=== PATIENT | female | born 1965 | race Hispanic/Latino ===

== ENCOUNTER 2017-05-21 14:10 | Emergency (ER) | payer BC, MEDICAID, OTHER ==
[2017-05-21 14:22] VITALS: BP 142/96; PULSE 85; RESP 20; TEMP 98.2; O2SAT 96
--- NOTE | 2017-05-21 15:32 | C.PDOC ---
History Of Present Illness 51 year old female presents to the ED with complaints of persistent cough for four days. Patient states when symptoms began she visited her PMD and was treated with antibiotics but symptoms persist. She notes a history of bronchitis and symptoms "feel the same way." Patient denies any fever, shortness of breath, or chest pain. Time Seen by Provider: 05/21/17 14:35 Chief Complaint (Nursing): Cough, Cold, Congestion History Per: Patient History/Exam Limitations: no limitations Onset/Duration Of Symptoms: Days (4 days ) Current Symptoms Are (Timing): Still Present Sick Contacts (Context): None Associated Symptoms: Cough. denies: Fever, Chills, Sore Throat Recent travel outside of the [place]: No Past Medical History Reviewed: Historical Data, Nursing Documentation, Vital Signs Vital Signs: Last Vital Signs Temp 98.2 F 05/21/17 14:18 Pulse 85 05/21/17 14:18 Resp 20 05/21/17 14:18 BP 142/96 H 05/21/17 14:18 Pulse Ox 96 05/21/17 18:33 - Medical History PMH: HTN, Seizures Surgical History: Cholecystectomy, Tonsillectomy - [facility] Procedures CLOSURE SKIN & SUBCUTANEOUS NEC (02/17/04) MAGNETIC RESONANCE IMAGING OF BRAIN AND BRAIN STEM (10/17/06) Family History: States: Unknown Family Hx - Social History Hx Tobacco Use: Yes (Quit smoking 3 years ago ) Hx Alcohol Use: No Hx Substance Use: No - Immunization History Hx Tetanus Toxoid Vaccination: Yes Hx Influenza Vaccination: No Hx Pneumococcal Vaccination: No Review Of Systems Constitutional: Negative for: Fever, Chills Cardiovascular: Negative for: Chest Pain, Palpitations Respiratory: Positive for: Cough. Negative for: Shortness of Breath Gastrointestinal: Negative for: Nausea, Vomiting Physical Exam - Physical Exam Appears: Non-toxic, No Acute Distress, Other (occassional dry cough noted) Skin: Warm, Dry Head: Atraumatic, Normacephalic Eye(s): bilateral: Normal Inspection, PERRL, EOMI Ear(s): Bilateral: Normal Nose: Normal Oral Mucosa: Moist Throat: Normal, No Erythema, No Exudate Neck: Normal ROM, Supple Chest: Symmetrical, No Deformity Cardiovascular: Rhythm Regular Respiratory: Normal Breath Sounds, No Rales, No Rhonchi, No Wheezing Neurological/Psych: Oriented x3, Normal Speech, Normal Cognition ED Course And Treatment O2 Sat by Pulse Oximetry: 96 (room air ) - Radiology CXR: Interpreted by Me, Viewed By Me CXR Interpretation: Yes: No Acute Disease Progress Note: On re-evaluation, pt notes her cough has improved since in the ER. Denies any pain or SOB. Pulse ox 98%. Patient was instructed to follow up with PMD and to finish course of antibiotics. Patient instructed to return to the ED if symtpoms worsen. Disposition - Disposition Disposition: HOME/ ROUTINE Disposition Time: 15:30 Condition: STABLE Additional Instructions: Follow up with primary medical doctor in 1-3 days without fail for further evaluation. Take medications as prescribed. Return to the emergency department at any time if symptoms persist or worsen. Prescriptions: Albuterol HFA [Ventolin HFA 90 mcg/actuation (8 g)] 2 puff IH [id number] PRN #1 puff PRN Reason: Shortness Of Breath Benzonatate [Tessalon Perle] 100 mg PO TID PRN #15 capsule PRN Reason: Cough Instructions: Acute Bronchitis (ED) - Clinical Impression Clinical Impression: Bronchitis - Scribe Statement The provider has reviewed the documentation as recorded by the Scribe Aleta Beckman All medical record entries made by the Scribe were at my direction and personally dictated by me. I have reviewed the chart and agree that the record accurately reflects my personal performance of the history, physical exam, medical decision making, and the department course for this patient. I have also personally directed, reviewed, and agree with the discharge instructions and disposition.
--- NOTE | 2017-05-21 15:55 | RAD ---
HISTORY: cough COMPARISON: No prior. TECHNIQUE: Chest PA and lateral FINDINGS: LUNGS: Poor inspiration with low lung volumes, crowded bronchovascular markings and mild bibasilar atelectasis PLEURA: No significant pleural effusion identified. No pneumothorax apparent. CARDIOVASCULAR: Heart size within range of normal OSSEOUS STRUCTURES: No significant abnormalities. VISUALIZED UPPER ABDOMEN: Normal. OTHER FINDINGS: None. IMPRESSION: Poor inspiration with low lung volumes, crowded bronchovascular markings and mild bibasilar atelectasis
== END 2017-05-21 15:37 | disposition home or self-care (01) ==
LOC: C.ER 14:10
DX: J20.9 Acute bronchitis, unspecified (principal); Z87.891 Personal history of nicotine dependence